=== PATIENT | female | born 1985 | race Two or more races ===

== ENCOUNTER 2022-02-03 01:17 | Emergency (ER) | payer OTHER ==
[~2022-02-03] VITALS: Ht 165.1 cm; Wt 81.6 kg
[2022-02-03] MEDS ORDERED: HYDROCODONE/APAP 5/325MG TABLET PO ONE (01:30)
[2022-02-03] MEDS ORDERED: HYDROCODONE/APAP 5/325MG TABLET ONE (01:31)
--- NOTE | 2022-02-03 01:33 | NUR ---
BIBSISTER. L SHOULDER AND L ARM PAIN S/P SLIP & FALL. PT ALSO HIT HER FACE DENIES KO. PT A/OX4. TOLERATING R/A WELL WITH NO RESP DISTRESS SAFETY MEASURES IN PLACE.
--- NOTE | 2022-02-03 01:33 | NUR ---
SENIOR BUSINESS INTELLIGENCE ANALYST AT PT'S BEDSIDE
[2022-02-03] MEDS ORDERED: IBUPROFEN 600 MG TABLET ONE (01:35)
--- NOTE | 2022-02-03 01:49 | NUR ---
SISTER AT PT'S BEDSIDE
[2022-02-03] MEDS ORDERED: IBUPROFEN 600 MG TABLET PO ONE (02:00)
[2022-02-03] MEDS ORDERED: NABU-139 PO (02:06)
[2022-02-03] MEDS ORDERED: OXYC-128 PO (02:06)
--- NOTE | 2022-02-03 02:16 | NUR ---
Applied sling to left arm. Patient discharged to home in stable condition. rx Written and verbal after care instructions given. Patient verbalizes understanding of instruction. pt ambulatory with a steady gait
[2022-02-03 02:17] VITALS: BP 127/86
== END 2022-02-03 02:17 | disposition home or self-care (01) ==
LOC: ER 01:27
DX: S42.292A Other displaced fracture of upper end of left humerus, initial encounter for closed fracture (principal); W18.30XA Fall on same level, unspecified, initial encounter; Y93.89 Activity, other specified; Y92.89 Other specified places as the place of occurrence of the external cause; Y99.8 Other external cause status
CPT/HCPCS: 73030-TC; 73080-TC